=== PATIENT | female | born 1960 | race Caucasian/White ===

== ENCOUNTER 2023-10-11 08:27 | Outpatient (RCR) | payer OTHER ==
[~2023-10-11 08:27] MED LIST: NAPROSYN500 MG PO; ORPHENADRINE C100 MG PO
== END 2023-11-08 ==
LOC: PT 08:27
PROVIDERS: ATTEND Specialist
DX: M48.061 Spinal stenosis, lumbar region without neurogenic claudication (principal); M25.561 Pain in right knee

== ENCOUNTER 2024-01-05 10:00 | Outpatient (RCR) | payer OTHER | END 2024-01-08 | LOC: PT 10:00 | PROVIDERS: ATTEND Specialist | DX: M54.50 Low back pain, unspecified (principal); M25.561 Pain in right knee ==